=== PATIENT | female | born 1945 | race Caucasian/White ===

== ENCOUNTER 2016-04-20 05:46 | Day surgery (SDC) | payer MEDICARE, OTHER ==
[~2016-04-20] VITALS: Ht 160 cm; Wt 51.7 kg
[~2016-04-20 05:46] MED LIST: ALENDRONATE SOD70 MG PO; CALCIUM 600 +1 EAC3 PO; CALTRATE 600 M600 M1; CELEXA20 MG PO; EXCEDRIN CAPLET1 TAB; EXCEDRIN EXTRA1 TAB PO; HYDROCODONE-APA1 TAB PO; MAXALT5 MG PO; TOPROL XL25 MG PO; VITAMIN D31000 UNI2 PO; ZOCOR20 MG PO
[2016-04-20 08:48] VITALS: BP 121/56; Ht 160 cm; Wt 51.7 kg
[2016-04-20] MEDS ORDERED: HYDROCODONE-APA1 TAB PO (09:55)
--- NOTE | 2016-04-20 10:52 | NUR ---
IV DC WITH CATHER TIP INTACT
--- NOTE | 2016-04-29 08:03 | OP ---
PATIENT NAME: ABRAHAM HANSON MEDICAL RECORD: [id number] :44 [facility] [place] ADMISSION DATE: SURGEON: JULIA LUND MD DATE OF OPERATION: 04/20/2016 PREOPERATIVE DIAGNOSIS: Left carpal tunnel syndrome. POSTOPERATIVE DIAGNOSIS: Left carpal tunnel syndrome. PROCEDURE PERFORMED: Left carpal tunnel release. SURGEON: Mustapha Lund MD ANESTHESIA: TIVA with local. CONDITION: She tolerated the procedure well, was transferred to recovery room in stable condition. INDICATIONS: This is a 71-year-old female that underwent an ORIF of the wrist several months back. She has been having significant numbness in her fingers since. We discussed the options and elected to go ahead and do a carpal tunnel release. We discussed risks, benefits, and alternatives including continued numbness. She understood and wished to proceed. OPERATIVE REPORT: The patient and placed in supine position. TIVA anesthesia was obtained. Left arm was identified as correct arm, following which she was prepped and draped in normal fashion. I did local infiltration of her carpal tunnel ____ with lidocaine plain. Once this was accomplished, I made an incision in her palm, took this down, identified the transverse carpal ligament, cut the transverse carpal ligament down onto the hemostat. The nerve was then followed out from distal to proximal into her surgical wound site. It did certainly show significant amount of scarring in the wound in the area of the surgery. Overall, the nerve looked okay other than scarring. I did also inspect her tendons, specifically to her thumb which she has been having some issues. These were clearly intact. Once the nerve was notably freed up, I then copiously irrigated, then closed with 3-0 Prolene. She was placed in a volar splint, was awakened and transferred to recovery room in stable condition, having tolerated the procedure well. I will see her back in the office in about 10 days. TRANSINT:[id number] Voice Confirmation ID: [id number] DOCUMENT ID: [id number] JULIA LUND MD at 0803 CC: [id number] DICTATION DATE: 04/20/16 1116 WATER MAIN INSPECTOR: 04/20/16 1137 [facility] 04/20/16 [place] [address]
== END 2016-04-20 11:00 | disposition home or self-care (01) ==
LOC: D.OPS 05:46 → D.PAN 10:00 → D.OPS 10:15 → D.PAN 10:15 → D.OPS 10:30 → D.PAN 10:30 → D.OPS 11:00 → D.PAN 12:00
DX: G56.02 Carpal tunnel syndrome, left upper limb (principal)

== ENCOUNTER → 2016-05-04 17:37 | Outpatient (CLI) | payer MEDICARE, OTHER ==
[2016-04-20 08:48] VITALS: BMI 20.2
[~2016-05-04 17:37] MED LIST changes: +MILK OF MAGNESI30 ML PO; +MULTIPLE VITAMI1 TA1 PO; +PREMARIN45 GM VG
== END | disposition home or self-care (01) ==
LOC: D.MAMMO 15:45
DX: Z12.31 Encounter for screening mammogram for malignant neoplasm of breast (principal)

== ENCOUNTER 2016-06-17 17:30 | Day surgery (SDC) | payer MEDICARE, OTHER ==
[~2016-06-17] VITALS: Ht 160 cm; Wt 51.3 kg
[~2016-06-17 17:30] MED LIST changes: -MILK OF MAGNESI30 ML PO; -MULTIPLE VITAMI1 TA1 PO; -PREMARIN45 GM VG
[2016-06-17 17:53] LABS: BASOPHILS 0.2 % (0.0-2.0); EOSINOPHILS 0.9 % (0-7); HEMATOCRIT 41.9 % (36.0-48.0); HEMOGLOBIN 13.6 g/dL (12-16); IMMATURE GRANULOCYTES 0.2 % (0-5); LYMPHOCYTES 14.6 % (15-50); MCH 31.4 pg (26.0-34.0); MCHC 32.5 g/dL (31.0-37.0); MCV 96.8 fL (80.0-100.0); MEAN PLATELET VOLUME 9.8 fL (7.4-10.4); MONOCYTES 7.5 % (2-11); NEUTROPHILS 76.6 % (40-80); PLATELET COUNT 269 10x3/uL (130-400); RBC 4.33 10x6/uL (4.00-5.40); RDW 12.1 % (11.5-14.5); WBC 13.1 10x3/uL (4.8-10.8)
[2016-06-17 18:03] LABS: APTT 25.4 SECONDS (22.8-39.4); INR 1.03 (0.85-1.17); PROTIME 13.3 SECONDS (11.6-15.0)
[2016-06-17 18:12] LABS: ALBUMIN 4.1 g/dL (3.4-5.0); ALKALINE PHOSPHATASE 57 U/L (46-116); ALT (SGPT) 27 U/L (10-68); BILIRUBIN - TOTAL 0.22 mg/dL (0.2-1.3); CALC OSMOLALITY 280 mosm/kg (275-300); CALCIUM 8.9 mg/dL (8.5-10.1); CARBON DIOXIDE 30.7 mmol/L (21.0-32.0); CHLORIDE - SERUM 102 mmol/L (98-107); CREATININE - SERUM 0.7 mg/dL (0.6-1.3); GLUCOSE 109 mg/dL (74-106); PROTEIN - SERUM 7.8 g/dL (6.4-8.2); SODIUM 140 mmol/L (136-145); UREA NITROGEN 16 mg/dL (7-18); eGFR NON AFRICAN AMERICAN 87 mL/min (90-120)
--- NOTE | 2016-06-17 18:22 | NUR ---
RECEIVED TO ROOM 2209 AT THIS TIME FROM THE ER VIA WHEELCHAIR.
[2016-06-17] MEDS ORDERED: PREMARIN45 GM VG (18:23)
[2016-06-17] MEDS ORDERED: MILK OF MAGNESI30 ML PO (18:25)
[2016-06-17] MEDS ORDERED: MULTIPLE VITAMI1 TA1 PO (18:26)
--- NOTE | 2016-06-17 19:00 | NUR ---
PATIENT SUPINE IN BED. HOB 40 DEGREES. AAOX4. RR EVEN AND UNLABORED. 0 S/S OF DISTRESS. STATES PAIN IS A 10/10 WHEN SHE MOVES HER HAND BUT A 6/10 WHEN SHE'S NOT MOVING IT. BANDAGE TO RIGHT WRIST. SRX2. BED LOW. CALL LIGHT WITHIN REACH.
[2016-06-17 21:23] VITALS: Ht 160 cm; Wt 51.3 kg
--- NOTE | 2016-06-17 22:40 | NUR ---
ADMIT HISTORY AND ASSESSMENT COMPLETE. CONSENTS SIGNED. PATIENT REFUSES B/A. FORM ON CHART. TYLENOL GIVEN FOR HEADACHE.
[2016-06-18] VITALS (7 sets, daily range): BP systolic 135–155; BP diastolic 63–68
--- NOTE | 2016-06-18 02:30 | NUR ---
PATIENT STATES THE TYLENOL DID NOT HELP AND HER HEADACHE IS A 10/10 AND SHE IS NAUSEATED. ZOFRAN GIVEN. PATIENT IS REQUESTING MAXALT. CALLED [facility]. WAITING ON RESPONSE.
--- NOTE | 2016-06-18 04:14 | NUR ---
PATIENT STILL C/O HEADACHE. CALLED [facility] AGAIN. STILL WAITING.
--- NOTE | 2016-06-18 04:50 | NUR ---
IMITREX GIVEN PER TELEPHONE ORDER BY DR. SPARKS.
--- NOTE | 2016-06-18 07:28 | NUR ---
PRN IMITREX AND PHENERGAN GIVEN PO WITH SMALL SIP OF WATER. PT VOIDED WITHOUT DIFFICULTY. ASSESSMENT PERFORMED PER FLOWSHEET. CALL LIGHT IN REACH, WILL CONTINUE WITH PLAN OF CARE.
--- NOTE | 2016-06-18 08:50 | NUR ---
PRE OP MEDICATIONS ADMINISTERED AT THIS TIME AND HIBICLENS BATH PERFORMED. WILL MONITOR PT WHEN SHE RETURNS FROM SURGERY.
--- NOTE | 2016-06-18 10:38 | NUR ---
Patient Name: ABRAHAM HANSON Admission Status: ER Accout number: [id number] Admission Date: 06-17-2016 : 1945 Admission Diagnosis: Attending: FLORECITA Current LOS: 1 Anticipated DC Date: 06-19-2016 Planned Disposition: Home Primary Insurance: MEDICARE A & B Discharge Planning Comments: CM MET WITH PATIENTS SPOUSE (AMARIS) PATIENT WAS IN SURGERY. SPOUSE STATED HE WILL DRIVE PATIENT HOME AT DISCHARGE. THERE ARE NO STEPS OR STAIRS AT PATIENTS HOME PER SPOUSE. PATIENT IS INDEPENDENT AND HAS NO DME AT HOME. PATIENTS PCP IS DR. WRAY AND SHE USES [facility]. PATIENT WILL NOT NEED HOME HEALTH PER SPOUSE AND DID NOT HAVE ANY OTHER NEEDS FOR DISCHARGE. CM WILL CONTINUE TO FOLLOW PATIENT WITH D/C NEEDS AND PLANS. PCP [facility]- [phone] AMARIS (SPOUSE) C [phone] Boat Puller: Nina Garcia How many steps to enter\exit or inside your home? 0 0 * PCP DR. WRAY 0 * Pharmacy [facility] 0 * Preadmission Environment Home with Family 0 * ADLs Independent 0 * Equipment None 0 * List name and contact numbers for known caregivers / representatives who currently or will assist patient after discharge: AMARIS (SPOUSE) C [phone] h [phone] * Community resources currently utilized None 0 * Additional services required to return to the preadmission environment? Yes 0 * Can the patient safely return to the preadmission environment? Yes 0 * Has this patient been hospitalized within the prior 30 days at any hospital? No 0 Grand Total: 0
[2016-06-18] MEDS ORDERED: HYDROCODONE-APA1 TAB PO (11:30)
--- NOTE | 2016-06-18 11:55 | NUR ---
PT RECEIVED FROM POST-OP. REPORT RECEIVED FROM AMANDA. PT UP RESTING IN BED. RESPONDS TO VERBAL STIMULI. DENIES PAIN AT THIS TIME. VITAL SIGN CHECK PER PROTOCOL. CALL LIGHT AND H2O IN REACH.
--- NOTE | 2016-06-18 13:10 | NUR ---
PT UP IN BED. STATES, "I'M FEELING MORE AWAKE NOW." NO S/S OF DISTRESS NOTED AT THIS TIME. PT C/O STINGING PAIN TO RIGHT WRIST. PT STATES, "I DON'T WANT TO TAKE ANYTHING FOR IT RIGHT NOW. IT'S NOT TOO TERRIBLE." CALL LIGHT AND H2O IN REACH.
--- NOTE | 2016-06-18 16:33 | NUR ---
PT SITTING UP IN BED EATING A SANDWICH. PT VOIDED IN TOILET X2 WITHOUT DIFFICULTY. PT STATES PASSING GAS WHILE UP TO BATHROOM. STATES PAIN LEVEL 3 AT THIS TIME. PT ABLE TO AMBULATE TO TOILET WITH A STEADY GAIT. DISCHARGE INSTRUCTIONS PROVIDED TO PT AND PT'S SPOUSE, PT VERBALIZED UNDERSTANDING. PT LEAVING WITH VIA PRIVATE VEHICLE.
== END 2016-06-18 16:40 | disposition home or self-care (01) ==
LOC: OBSVTIME → D.OPS 17:30 → D.MS 17:38 → OBSVTIME 17:38 → D.ER 17:38 → EDSTATUS 06-18 10:30 → D.MS 06-18 16:40 → D.OPS 06-18 16:40 → D.MS 06-18 16:40
PROVIDERS: Emergency Medicine
DX: G56.02 Carpal tunnel syndrome, left upper limb (principal)

== ENCOUNTER → 2017-06-21 17:28 | Outpatient (CLI) | payer MEDICARE, OTHER ==
[~2017-06-21 17:28] MED LIST changes: +MILK OF MAGNESI30 ML PO; +MULTIPLE VITAMI1 TA1 PO; +PREMARIN45 GM VG
== END | disposition home or self-care (01) ==
LOC: D.MAMMO 14:30
DX: Z12.31 Encounter for screening mammogram for malignant neoplasm of breast (principal)

== ENCOUNTER → 2018-06-22 23:42 | Outpatient (CLI) | payer MEDICARE, OTHER | END | disposition home or self-care (01) | LOC: D.MAMMO 11:30 | PROVIDERS: ATTEND Family Medicine | DX: Z12.31 Encounter for screening mammogram for malignant neoplasm of breast (principal) ==

== ENCOUNTER 2019-09-12 09:00 | Outpatient (CLI) | payer MEDICARE, OTHER | END 2019-09-12 10:00 | disposition home or self-care (01) | LOC: D.MAMMO 09:00 | PROVIDERS: ATTEND Family Medicine | DX: Z12.31 Encounter for screening mammogram for malignant neoplasm of breast (principal) ==

== ENCOUNTER 2020-08-15 09:58 | Emergency (ER) | payer MEDICARE, OTHER ==
[~2020-08-15] VITALS: Ht 160 cm; Wt 51.4 kg
[2020-08-15 10:05] VITALS: Ht 160 cm; Wt 51.4 kg
[2020-08-15 10:34] LABS: HEMOGLOBIN 11.5 g/dL (12-16); LYMPHOCYTE ABS# 2.39 10x3/uL (1.18-3.74); MCH 30.6 pg (26.0-34.0); MCHC 32.9 g/dL (31.0-37.0); MCV 93.1 fL (80.0-100.0); MEAN PLATELET VOLUME 9.6 fL (7.4-10.4); NEUTROPHIL ABS# 21.36 10x3/uL (1.56-6.13); PLATELET COUNT 327 10x3/uL (130-400); RBC 3.76 10x6/uL (4.00-5.40); RDW 12.7 % (11.5-14.5); WBC 25.2 10x3/uL (4.8-10.8)
[2020-08-15 10:39] LABS: CALC OSMOLALITY 262 mosm/kg (275-300); CALCIUM 8.4 mg/dL (8.5-10.1); CHLORIDE - SERUM 93 mmol/L (98-107); CREATININE - SERUM 1.5 mg/dL (0.6-1.3); POTASSIUM - SERUM 4.5 mmol/L (3.5-5.1); SODIUM 128 mmol/L (136-145); UREA NITROGEN 18 mg/dL (7-18); eGFR NON AFRICAN AMERICAN 36 mL/min (90-120)
[2020-08-15 10:41] LABS: GLUCOSE 164 mg/dL (74-106)
[2020-08-15 10:48] LABS: ALBUMIN 3.1 g/dL (3.4-5.0); ALKALINE PHOSPHATASE 67 U/L (30-120); ALT (SGPT) 17 U/L (10-68); AMYLASE - SERUM 52 U/L (25-115); BILIRUBIN - TOTAL 0.48 mg/dL (0.2-1.3); LIPASE 66 U/L (73-393); PROTEIN - SERUM 6.9 g/dL (6.4-8.2)
[2020-08-15 10:52] LABS: TROPONIN-I < 0.017 ng/mL (0.000-0.060)
[2020-08-15 10:53] LABS: LYMPHOCYTES 6 % (15-50); MONOCYTES 1 % (2-11); NEUTROPHILS 92 % (40-80); PLATELET ESTIMATE NORMAL
[2020-08-15 12:17] LABS: NITRITE NEGATIVE (NEGATIVE)
[2020-08-15 12:18] LABS: BILIRUBIN NEGATIVE (NEGATIVE); KETONE NEGATIVE (NEGATIVE); UROBILINOGEN NORMAL mg/dL (< 2)
[2020-08-15 12:19] LABS: BACTERIA FEW HPF (NONE SEEN); WHITE CELLS - URINE 3 HPF (0-4)
[2020-08-15 15:25] VITALS: BP 129/49
== END 2020-08-15 15:23 | disposition other institution (70) ==
LOC: D.ER 09:58
PROVIDERS: Student in an Organized Health Care Education/Training Program
DX: K56.7 Ileus, unspecified (principal); N12 Tubulo-interstitial nephritis, not specified as acute or chronic

== ENCOUNTER 2020-09-16 14:30 | Outpatient (CLI) | payer MEDICARE, OTHER | END 2020-09-16 23:59 | disposition home or self-care (01) | LOC: D.MAMMO 14:30 | PROVIDERS: ATTEND Family Medicine | DX: Z12.31 Encounter for screening mammogram for malignant neoplasm of breast (principal) ==